=== PATIENT | female | born 1980 | race Caucasian/White ===

== ENCOUNTER 2024-04-28 12:44 | Emergency (ER) | payer BC, SELFPAY ==
[~2024-04-28] VITALS: Ht 165.1 cm; Wt 83.4 kg
[2024-04-28] MEDS: NS (Normal Saline) 0.9% 1,000 ML IV ONE ×2 (13:06→14:34)
[2024-04-28 13:19] LABS: VENOUS BASE EXCESS -3.9 (-2.0-2.0); VENOUS HCO3 19.7 MMOL/L (23.0-27.0); VENOUS O2 SATURATION 67.5 % (60.0-80.0); VENOUS PARTIAL PRESSURE CO2 32.5 mmHg (38.0-50.0); VENOUS PARTIAL PRESSURE O2 33.4 mmHg (30.0-50.0); VENOUS STANDARD HCO3 20.5 MMOL/L; VENOUS TOTAL CO2 20.7 MMOL/L (24.0-28.0)
[2024-04-28 13:23] LABS: BASO # 0.1 10^3/uL (0.0-0.2); BASO % 0.3 % (0.0-1.0); EOS % 0.2 % (0.0-3.0); HEMATOCRIT 47.3 % (36.0-47.0); HEMOGLOBIN 15.8 g/dl (12.0-15.5); LYMPH # 2.7 10^3/uL (1.5-5.0); LYMPH % 15.1 % (24.0-44.0); MEAN CORPUSCULAR HEMOGLOBIN 30.5 pg (27.0-33.0); MEAN CORPUSCULAR HGB CONC 33.4 g/dl (32.0-36.5); MEAN CORPUSCULAR VOLUME 91.3 fl (80.0-96.0); MONO # 0.9 10^3/uL (0.0-0.8); NEUTROPHILS # 14.1 10^3/uL (1.5-8.5); PLATELET COUNT, AUTOMATED 391 10^3/uL (150-450); RED BLOOD COUNT 5.18 10^6/uL (4.00-5.40); WHITE BLOOD COUNT 17.8 10^3/uL (4.0-10.0)
[2024-04-28 13:35] LABS: INR 0.98; PARTIAL THROMBOPLASTIN TIME 28.1 SECONDS (24.8-34.2); PROTHROMBIN TIME 13.3 SECONDS (12.5-14.5)
[2024-04-28 13:53] LABS: CK-MB VALUE MASS 1.4 NG/ML (<3.6); ETHYL ALCOHOL (ETHANOL) < 0.003 % (0.000-0.010)
[2024-04-28 13:54] LABS: BLOOD UREA NITROGEN 12 MG/DL (9-23); CALCIUM LEVEL 9.8 MG/DL (8.5-10.1); CARBON DIOXIDE LEVEL 18 MMOL/L (20-31); CHLORIDE LEVEL 100 MMOL/L (98-107); CPK CREATINE PHOSPHOKINASE 147 U/L (34-145); CREATININE FOR GFR 0.61 MG/DL (0.55-1.30); GLOMERULAR FILTRATION RATE > 60.0 (>58); GLUCOSE, FASTING 119 MG/DL (60-100); HCG, SERUM QUALITATIVE NEGATIVE (NEGATIVE); MAGNESIUM LEVEL 1.7 MG/DL (1.8-2.4); MB/CK RELATIVE INDEX 0.95 (< OR =4); POTASSIUM SERUM 3.5 MMOL/L (3.5-5.1); SODIUM LEVEL 138 MMOL/L (136-145)
[2024-04-28 13:56] LABS: THYROID STIMULATING HORMONE 1.538 uIU/ML (0.55-4.78)
[2024-04-28 13:57] LABS: FREE T4 1.23 NG/DL (0.89-1.76)
[2024-04-28] MEDS: MAG SULF 1GM/100ML (MAG RUN) 1 GM in IV 1 EA IV ONE (14:33)
[2024-04-28 14:40] LABS: AMPHETAMINES LEVEL URINE NEGATIVE (NEGATIVE); BARBITURATES URINE NEGATIVE (NEGATIVE); BENZODIAZEPINES URINE NEGATIVE (NEGATIVE); COCAINE METABOLITE URINE NEGATIVE (NEGATIVE); METHADONE URINE NEGATIVE (NEGATIVE); OPIATES URINE NEGATIVE (NEGATIVE); PHENCYCLIDINE URINE NEGATIVE (NEGATIVE)
[2024-04-28 14:43] LABS: CK-MB VALUE MASS 2.1 NG/ML (<3.6)
[2024-04-28 14:44] LABS: CANNABINOIDS URINE POSITIVE (NEGATIVE); MB/CK RELATIVE INDEX 1.33 (< OR =4)
[2024-04-28] MEDS ORDERED: METO1TAB87 PO (19:01)
[2024-04-28 19:31] VITALS: BP 187/85; TEMP 97.4; O2SAT 98
== END 2024-04-28 19:39 | disposition home or self-care (01) ==
LOC: EDBD 12:44 → M ED 12:44
DX: I10 Essential (primary) hypertension (principal); I47.10 Supraventricular tachycardia, unspecified; E83.42 Hypomagnesemia; I51.7 Cardiomegaly; F17.200 Nicotine dependence, unspecified, uncomplicated; F12.10 Cannabis abuse, uncomplicated; F10.10 Alcohol abuse, uncomplicated; Z79.899 Other long term (current) drug therapy
CPT/HCPCS: 71045; 80047; 80048; 80307; 81001; 82077; 82550; 82553; 82803; 83605; 83735; 84439; 84443; 84484; 84703; 85025; 85610; 85730; 93005; 93041; 94760; 96361; 96365; 96366; 99285; J3475

== ENCOUNTER 2024-08-07 19:46 | Emergency (ER) | payer BC ==
[~2024-08-07] VITALS: Ht 162.6 cm; Wt 78.0 kg
[~2024-08-07 19:46] MED LIST: METO1TAB87 PO
[2024-08-07 20:13] LABS: BASO % 0.3 % (0.0-1.0); EOS % 0.4 % (0.0-3.0); HEMATOCRIT 42.6 % (36.0-47.0); HEMOGLOBIN 14.5 g/dl (12.0-15.5); LYMPH # 2.1 10^3/uL (1.5-5.0); LYMPH % 27.1 % (24.0-44.0); MEAN CORPUSCULAR HEMOGLOBIN 30.2 pg (27.0-33.0); MEAN CORPUSCULAR VOLUME 88.8 fl (80.0-96.0); MONO # 0.9 10^3/uL (0.0-0.8); MONO % 11.3 % (2.0-8.0); NEUTROPHILS # 4.8 10^3/uL (1.5-8.5); NEUTROPHILS % 60.6 % (36.0-66.0); PLATELET COUNT, AUTOMATED 225 10^3/uL (150-450); WHITE BLOOD COUNT 7.9 10^3/uL (4.0-10.0)
[2024-08-07 20:34] LABS: CK-MB VALUE MASS < 1.0 NG/ML (<3.6)
[2024-08-07 20:35] LABS: CPK CREATINE PHOSPHOKINASE 56 U/L (34-145); MB/CK RELATIVE INDEX 1.78 (< OR =4)
[2024-08-07 20:41] LABS: BLOOD UREA NITROGEN 6 MG/DL (9-23); CALCIUM LEVEL 8.5 MG/DL (8.5-10.1); CARBON DIOXIDE LEVEL 22 MMOL/L (20-31); CHLORIDE LEVEL 104 MMOL/L (98-107); CREATININE FOR GFR 0.54 MG/DL (0.55-1.30); GLOMERULAR FILTRATION RATE > 60.0 (>58); GLUCOSE, FASTING 85 MG/DL (60-100); POTASSIUM SERUM 3.8 MMOL/L (3.5-5.1); SODIUM LEVEL 136 MMOL/L (136-145)
[2024-08-07 21:22] LABS: MAGNESIUM LEVEL 1.9 MG/DL (1.8-2.4)
[2024-08-07 21:27] LABS: CK-MB VALUE MASS < 1.0 NG/ML (<3.6)
[2024-08-07 21:30] LABS: CPK CREATINE PHOSPHOKINASE 61 U/L (34-145); MB/CK RELATIVE INDEX 1.63 (< OR =4)
[2024-08-07] MEDS ORDERED: ISOVUE-370 76% 100ML VIAL As Ordered ONE (21:39)
[2024-08-07] MEDS: ACETAMINOPHEN *IV* 1,000 MG in IV 1 EA IV ONE (22:01)
[2024-08-07 22:39] LABS: FREE T4 1.18 NG/DL (0.89-1.76)
[2024-08-07 22:40] LABS: THYROID STIMULATING HORMONE 3.209 uIU/ML (0.55-4.78)
[2024-08-08 00:53] VITALS: BP 136/80; TEMP 97.3; O2SAT 98
== END 2024-08-08 00:55 | disposition home or self-care (01) ==
LOC: M ED 19:46
DX: R00.2 Palpitations (principal); I49.1 Atrial premature depolarization; J10.01 Influenza due to other identified influenza virus with the same other identified influenza virus pneumonia; F12.10 Cannabis abuse, uncomplicated; F17.200 Nicotine dependence, unspecified, uncomplicated; F19.10 Other psychoactive substance abuse, uncomplicated; R59.9 Enlarged lymph nodes, unspecified; Z88.5 Allergy status to narcotic agent; Z79.899 Other long term (current) drug therapy
CPT/HCPCS: 71045; 71275; 80048; 82550; 82553; 83735; 84439; 84443; 84484; 85025; 93005; 93041; 94760; 96365; 99285; J0131; Q9967